=== PATIENT | female | born 1975 | race Caucasian/White ===

== ENCOUNTER 2020-10-08 21:10 | Emergency (ER) | payer OTHER ==
[2020-10-08 23:05] LABS: HEMOGLOBIN 14.4 gm/dl (12.3-15.3); RED BLOOD COUNT 5.19 M/UL (4.00-5.10); WHITE BLOOD COUNT 11.9 K/UL (4.5-11.0)
[2020-10-09 00:24] LABS: BUN/CREATININE RATIO 21 (0-10)
== END 2020-10-09 02:17 | disposition home or self-care (01) ==
LOC: ER1 21:10
PROVIDERS: Physician Assistant Medical
DX: R51.9 Headache, unspecified (principal); R42 Dizziness and giddiness
CPT/HCPCS: 70450; 71045; 80053; 82550; 82553; 83874; 84439; 84443; 84484; 85025; 85610; 99284

== ENCOUNTER 2020-11-03 11:09 | Emergency (ER) | payer OTHER ==
[2020-11-03 13:06] LABS: HEMOGLOBIN 14.8 gm/dl (12.3-15.3); RED BLOOD COUNT 5.34 M/UL (4.00-5.10); WHITE BLOOD COUNT 12.3 K/UL (4.5-11.0)
[2020-11-03 13:31] LABS: BUN/CREATININE RATIO 21 (0-10)
== END 2020-11-03 15:10 | disposition home or self-care (01) ==
LOC: ER1 11:09
PROVIDERS: Emergency Medicine
DX: R51.9 Headache, unspecified (principal)
CPT/HCPCS: 70450; 80053; 85025; 85652; 96374; 96375; 99284; J2270; J2405

== ENCOUNTER → 2020-11-27 | Outpatient (CLI) | payer OTHER | LOC: RAD 10:50 | DX: G44.89 Other headache syndrome (principal); G43.009 Migraine without aura, not intractable, without status migrainosus; G45.9 Transient cerebral ischemic attack, unspecified | CPT/HCPCS: 71046 ==

== ENCOUNTER → 2020-11-27 | Outpatient (CLI) | payer OTHER | LOC: EMI 09:28 | DX: G44.89 Other headache syndrome (principal); G43.009 Migraine without aura, not intractable, without status migrainosus; G45.9 Transient cerebral ischemic attack, unspecified | CPT/HCPCS: 70551 ==